=== PATIENT | female | born 1955 | race Caucasian/White ===

== ENCOUNTER 2017-08-28 10:10 | Inpatient (IN) | payer OTHER ==
[~2017-08-28] VITALS: Ht 160 cm; Wt 130.6 kg
[2017-08-28 10:15] VITALS: Ht 160 cm; Wt 130.6 kg
[2017-08-28 11:07] LABS: BASOPHIL % 0.4 % (0-2); PLATELET COUNT 302 x10^3mcL (130-400); RED CELL DISTRIBUTION WIDTH 14.4 % (11.5-14.5)
[2017-08-28 11:22] LABS: CALCIUM 9.6 mg/dL (8.5-10.1); CARBON DIOXIDE 29.4 mmol/L (21-32); CHLORIDE SERUM 97 mmol/L (98-107); CREATININE SERUM 0.8 mg/dL (0.6-1.0); GFR1 > 60 mL/min; GLUCOSE SERUM 205 mg/dL (74-106); POTASSIUM SERUM 4.1 mmol/L (3.5-5.1); SODIUM SERUM 137 mmol/L (136-145)
[2017-08-28 11:26] LABS: ALBUMIN 3.5 g/dL (3.4-5.0); ALKALINE PHOSPHATASE 124 U/L (46-116); ALT/SGPT 22 U/L (14-59); AST/SGOT 15 U/L (15-37); BILIRUBIN TOTAL 0.28 mg/dL (0.20-1.00); TOTAL PROTEIN, SERUM 7.9 g/dL (6.4-8.2)
[2017-08-28] MEDS ORDERED: HYDROCHLOROTHIA25 MG PO (12:25)
[2017-08-28] MEDS ORDERED: JANUVIA100 M1 PO (12:25)
[2017-08-28] MEDS ORDERED: ENALAPRIL MALEA10 MG PO (12:25)
[2017-08-28] MEDS ORDERED: CRESTOR10 M1 PO (12:26)
[2017-08-28 13:18] VITALS: BP 123/41
[2017-08-28 15:12] LABS: CHOLESTEROL/HDL RATIO 3.7; PHOSPHOROUS 3.2 mg/dL (2.5-4.9)
[2017-08-28 15:18] LABS: FREE T4 0.94 ng/dL (0.76-1.46); FREE THYROXINE INDEX 2.2 ug/dL (1.4-4.5); T4(THYROXINE) 6.7 ug/dL (4.7-13.3)
[2017-08-28 15:24] LABS: T3 TOTAL 1.21 ng/mL
[2017-08-28 17:04] VITALS: BP 139/65
[2017-08-28 21:03] VITALS: BP 131/53
[2017-08-29 02:46] LABS: CALCIUM 9.2 mg/dL (8.5-10.1); CARBON DIOXIDE 28.6 mmol/L (21-32); CHLORIDE SERUM 101 mmol/L (98-107); CREATININE SERUM 0.8 mg/dL (0.6-1.0); GFR1 > 60 mL/min; GLUCOSE SERUM 149 mg/dL (74-106); MAGNESIUM 2.1 mg/dL (1.8-2.4); PHOSPHOROUS 5.5 mg/dL (2.5-4.9); POTASSIUM SERUM 3.8 mmol/L (3.5-5.1); SODIUM SERUM 140 mmol/L (136-145)
[2017-08-29 03:02] LABS: PLATELET COUNT 285 x10^3mcL (130-400); RED CELL DISTRIBUTION WIDTH 13.3 % (11.5-14.5)
[2017-08-29 03:05] LABS: BASOPHIL % 3.5 % (0-2)
[2017-08-29 05:45] VITALS: BP 117/73
[2017-08-29 10:41] VITALS: BP 113/55
[2017-08-29 14:03] VITALS: BP 103/55
[2017-08-29 17:06] LABS: UA SPECIFIC GRAVITY 1.015 (1.005-1.035); microscopic required? YES; urine erythrocyte TRACE (NEGATIVE)
[2017-08-29 17:50] LABS: AMPHETAMINE QUAL UR NONE DETECTED (NEG <=1000)
[2017-08-29 18:13] VITALS: BP 101/50
[2017-08-29 20:27] VITALS: BP 97/57
[2017-08-30 05:39] VITALS: BP 105/54
[2017-08-30 07:45] LABS: BASOPHIL % 0.3 % (0-2); PLATELET COUNT 282 x10^3mcL (130-400); RED CELL DISTRIBUTION WIDTH 14.4 % (11.5-14.5)
[2017-08-30 08:46] LABS: CALCIUM 9.4 mg/dL (8.5-10.1); CARBON DIOXIDE 29.9 mmol/L (21-32); CHLORIDE SERUM 99 mmol/L (98-107); CREATININE SERUM 0.9 mg/dL (0.6-1.0); GFR1 > 60 mL/min; GLUCOSE SERUM 159 mg/dL (74-106); MAGNESIUM 2.2 mg/dL (1.8-2.4); PHOSPHOROUS 4.1 mg/dL (2.5-4.9); POTASSIUM SERUM 3.7 mmol/L (3.5-5.1); SODIUM SERUM 139 mmol/L (136-145)
[2017-08-30 09:25] VITALS: BP 108/50; BP 108/58
[2017-08-30 13:01] VITALS: BP 105/86
[2017-08-30] MEDS ORDERED: LEVAQUIN750 MG PO (14:01)
[2017-08-30] MEDS ORDERED: LAC PO (14:02)
[2017-08-30] MEDS ORDERED: CLINDAMYCIN HC300 MG PO (14:02)
[2017-08-30] MEDS ORDERED: ECO81 PO (14:04)
[2017-08-30 14:23] VITALS: BP 105/86
== END 2017-08-30 15:58 | disposition home or self-care (01) | DRG 178 ==
LOC: ED 10:10 → DU 12:19
PROVIDERS: Emergency Medicine; Family Medicine
DX: J69.0 Pneumonitis due to inhalation of food and vomit (principal); N39.0 Urinary tract infection, site not specified; Z68.43 Body mass index [BMI] 50.0-59.9, adult; Z88.8 Allergy status to other drugs, medicaments and biological substances; I10 Essential (primary) hypertension; E11.65 Type 2 diabetes mellitus with hyperglycemia; E78.5 Hyperlipidemia, unspecified; E87.8 Other disorders of electrolyte and fluid balance, not elsewhere classified; E66.9 Obesity, unspecified; E83.39 Other disorders of phosphorus metabolism; R07.89 Other chest pain
CPT/HCPCS: 83880; 84439; 85378; G0480; J0696; J2405; J2543; J3490; J7030; J7620; Q0092